=== PATIENT | female | born 1995 | race Caucasian/White ===

== ENCOUNTER 2018-10-20 10:08 | Outpatient (CLI) | payer MEDICAID, OTHER ==
[~2018-10-20] VITALS: Ht 157.5 cm; Wt 60.3 kg
[2018-10-20 10:18] VITALS: Ht 157.5 cm; Wt 60.3 kg
--- NOTE | 2018-10-20 13:00 | TRIAGE ---
OB Triage Datetime Report Generated by CPN: 10/20/2018 13:00 Datetime: 10/20/2018 12:47 Stage of : OB Triage Maternal Assessment Level of Consciousness: Fully Conscious DTR's/Clonus: DTRs 1+ Headache: Denies Breath Sounds, Left: Clear and Equal Breath Sounds, Right: Clear and Equal RUQ Epigastric Pain: Denies Labor Evaluation Frequency: IRR Monitor Mode: External Duration (sec)2399: 50-60 Quality: Mild Pattern: Normal: <= 5 Contractions in 10 Minutes Resting Tone [place]: Relaxed Heart Rate FHR Baseline Rate: 140 Monitor Mode: External US Variability: Moderate 6-25 bpm Accelerations: 15X15 Decelerations: None Category: Category I Pain Assessment Pain Scale: 0 Pain Presence: None/Denies Pain Type: N/A Pain Goal: 3 Vaginal Exam Membrane Status: Intact Datetime: 10/20/2018 12:00 Stage of : OB Triage Maternal Assessment Level of Consciousness: Fully Conscious DTR's/Clonus: DTRs 1+ Headache: Denies Breath Sounds, Left: Clear and Equal Breath Sounds, Right: Clear and Equal RUQ Epigastric Pain: Denies Labor Evaluation Frequency: IRR Monitor Mode: External Duration (sec)2399: 50-60 Quality: Mild Pattern: Normal: <= 5 Contractions in 10 Minutes Resting Tone [place]: Relaxed Heart Rate FHR Baseline Rate: 140 Monitor Mode: External US Variability: Moderate 6-25 bpm Accelerations: 15X15 Decelerations: None Category: Category I Pain Assessment Pain Scale: 0 Pain Presence: None/Denies Pain Type: N/A Pain Goal: 3 Vaginal Exam Membrane Status: Intact Datetime: 10/20/2018 11:00 Stage of : OB Triage Maternal Assessment Level of Consciousness: Fully Conscious DTR's/Clonus: DTRs 1+ Headache: Denies Breath Sounds, Left: Clear and Equal Breath Sounds, Right: Clear and Equal RUQ Epigastric Pain: Denies Labor Evaluation Frequency: OCC Monitor Mode: External Duration (sec)2399: 50-60 Quality: Mild Pattern: Normal: <= 5 Contractions in 10 Minutes Resting Tone [place]: Relaxed Heart Rate FHR Baseline Rate: 140 Monitor Mode: External US Variability: Moderate 6-25 bpm Accelerations: 15X15 Decelerations: None Category: Category I Pain Assessment Pain Scale: 0 Pain Presence: None/Denies Pain Type: N/A Pain Goal: 3 Vaginal Exam Membrane Status: Intact Datetime: 10/20/2018 10:36 Maternal Assessment Level of Consciousness: Fully Conscious DTR's/Clonus: DTRs 1+ Headache: Denies Blurred Vision: No Breath Sounds, Left: Clear and Equal Breath Sounds, Right: Clear and Equal RUQ Epigastric Pain: Denies Facial Edema: None Labor Evaluation Frequency: X2 Monitor Mode: External Duration (sec)2399: 50-60 Quality: Mild Pattern: Normal: <= 5 Contractions in 10 Minutes Resting Tone [place]: Relaxed Heart Rate FHR Baseline Rate: 140 Variability: Moderate 6-25 bpm Accelerations: 15X15 Decelerations: None Category: Category I Pain Assessment Pain Scale: 0 Pain Presence: None/Denies Pain Type: N/A Pain Goal: 3 Vaginal Exam Membrane Status: Intact Datetime: 10/20/2018 10:30 Maternal Assessment Level of Consciousness: Fully Conscious DTR's/Clonus: DTRs 1+ Headache: Denies Blurred Vision: No Breath Sounds, Left: Clear and Equal Breath Sounds, Right: Clear and Equal Nausea/Vomiting: Denies RUQ Epigastric Pain: Denies Facial Edema: None Labor Evaluation Frequency: X1 Monitor Mode: External Duration (sec)2399: 50 Quality: Mild Pattern: Normal: <= 5 Contractions in 10 Minutes Resting Tone [place]: Relaxed Heart Rate FHR Baseline Rate: 140 Monitor Mode: External US Variability: Moderate 6-25 bpm Accelerations: 15X15 Decelerations: None Category: Category I Pain Assessment Pain Scale: 0 Pain Presence: None/Denies Pain Type: N/A Pain Goal: 0 Vaginal Exam Membrane Status: Intact Datetime: 10/20/2018 10:11 EGA: 38.4 Datetime: 10/20/2018 10:10 Stage of : OB Triage Datetime: 10/20/2018 10:05 Assessment Type: Triage Maternal Assessment Level of Consciousness: Fully Conscious DTR's/Clonus: DTRs 2+; No Clonus Headache: Denies Blurred Vision: No Respiratory Effort: Unlabored; Regular Rhythm; Equal Expansion Breath Sounds, Left: Clear and Equal Breath Sounds, Right: Clear and Equal Nausea/Vomiting: Denies RUQ Epigastric Pain: Denies Lower Extremities Edema: None Degree: None Upper Extremities Edema: None Degree: None Facial Edema: None Fall Risk Assessment History of Falling: (0) No Secondary Diagnosis: (0) No Ambulatory Aid: (0) Bedrest/Nurse Assist IV Therapy: (0) No Gait: (0) Normal/Bedrest/Immobile Mental Status: (0) Oriented to Own Ability Fall Score: 0 Fall Risk Score Definition: No Risk: No action required Datetime: 10/20/2018 09:59 Time of Arrival: 10/20/2018 09:59 Arrived By: Ambulatory Arrived From: Home Chief Complaint: PT CAME IN FROM HOME C/O SPOTTING BROWN DISCHARGE LAST NIGHT AND DFM. DENIE S ANY OTHER COMPLICATION Movement: Present Contractions: Denies/Absent Rupture of Membranes: Denies Vaginal Discharge: Denies Recent Sexual Intercouse: Denies Abdominal Trauma: Not Applicable Additional Patient Complaints: NONE Time Provider Notified: 10/20/2018 10:20 Provider Notified: TAWANDA Initial Plan: MONITOR AND VE
--- NOTE | 2018-10-20 17:01 | PN ---
Triage Information Date/Time October 12, 2018 Reason for visit: Weeks of Gestation 38 weeks and 4 days /Para 1 para 0 Diabetes: none Hypertention: none Additional information 23-year-old with IUP at 38 weeks and 4 days presented with complaint of spotting today as well as decreased movement. She denies leaking of fluid or contractions. Denies any competition during course. Objective Heart Rate: 130's Heart Rate Comments Category 1 Exam General appearance: Alert and oriented x4 does not appear to be in any acute distress Abdomen: Soft, gravid, fundal height consider gestational age NST: Category 1 Cervical exam: /-2 Rh+ Estimated weight: 18 percentile ALEXANDER: 10.4 BPP: 03/30 Results/Medications Result Diagram: 10/20/18 1110 10/20/18 1110 Results 24 hrs Laboratory Tests Test 10/20/18 11:10 White Blood Count 7.4 Red Blood Count 3.82 L Hemoglobin 8.5 L Hematocrit 28.7 L Mean Corpuscular Volume 75.1 L Mean Corpuscular Hemoglobin 22.3 L Mean Corpuscular Hemoglobin Concent 29.6 L Red Cell Distribution Width 17.8 H Platelet Count 165 Mean Platelet Volume 10.5 H Immature Granulocytes % 0.800 H Neutrophils % 70.0 Lymphocytes % 21.7 Monocytes % 6.1 Eosinophils % 0.9 Basophils % 0.5 Nucleated Red Blood Cells % 0.0 Immature Granulocytes # 0.060 H Neutrophils # 5.2 Lymphocytes # 1.6 Monocytes # 0.5 Eosinophils # 0.1 Basophils # 0.0 Nucleated Red Blood Cells # 0.0 Activated Partial Thromboplast Time 24.6 Sodium Level 138 Potassium Level 4.2 Chloride Level 110 Carbon Dioxide Level 21 Anion Gap 7 Blood Urea Nitrogen 12 Creatinine 0.58 Est Glomerular Filtrat Rate mL/min > 60 Glucose Level 73 Calcium Level 8.9 Total Bilirubin 0.3 Direct Bilirubin 0.00 Indirect Bilirubin 0.3 Aspartate Amino Transf (AST/SGOT) 25 Alanine Aminotransferase (ALT/SGPT) 7 L Alkaline Phosphatase 110 Total Protein 6.6 Albumin 3.5 Globulin 3.10 Albumin/Globulin Ratio 1.12 Imaging Results PROCEDURE: US OB. CLINICAL INDICATION: Size and dates , vaginal spotting TECHNIQUE: Multiple sonographic images of the pelvis and gravid uterus were obtained. The images were reviewed on a PACS workstation. COMPARISON: US PELVIS 10/20/2018 FINDINGS: Gestation: Single live intrauterine gestation. Cardiac activity: 156 beats per minute. Presentation: Vertex. Placenta: Location: Posterior Appearance: No previa or abruption. Amniotic Fluid: ALEXANDER = 10.4 cm Measurements: BPD = 8.4 cm, 34 weeks and 0 days HC = 30.7 cm, 34 weeks and 1 day AC = 34.5 cm, 38 weeks and 3 days FL = 6.8 cm, 34 weeks and 5 days Gestational Age: AUA estimated gestational age: 35 weeks 2 days LMP estimated gestational age: 38 weeks 4 days AUA estimated date of delivery: 11/22/18 The EFW = 2961 g, 18%ile based on LMP age. RPTAT: AA IMPRESSION: Single live intrauterine gestation of 35 weeks 2 days by ultrasound criteria. .Ramy Carl MD, MD Date Time Electronically viewed and signed by .Ramy Carl, Disposition: Discharge Assessment/Plan IUP at 38 weeks and 4 days Spotting Rh+ Decreased movement testing reassuring DC home strict labor precaution kick count follow-up with primary OB office within 48 hours after discharge from the hospital discussed with patient ASHLI JIMENEZ MD Oct 20, 2018 17:01
--- NOTE | 2018-10-23 17:59 | DS ---
DATE OF ADMISSION: 10/20/2018 DATE OF DISCHARGE: 10/20/2018 HISTORY OF PRESENT ILLNESS: This is a 23-year-old lady, 1 and EDC 10/30/2018 that makes her 38 and 3/7 weeks, admitted to rule out labor. She started to have contractions about a few hours parris or to admission and got worse up to the time of admission. PAST PERSONAL HISTORY: No history of diabetes, TB, asthma. ALLERGIES: NO ALLERGIES. SOCIAL HISTORY: The patient does not smoke. She does not drink. MEDICATIONS: She does not take any drugs except her; 1. Iron. 2. Vitamins. GYNECOLOGIC HISTORY: She had menarche at the age of 12, every 28 days interval, 3 to 4 days duration and moderate in amount. FAMILY HISTORY: Mother has a history of depression, sister had history of thyroid problem. REVIEW OF SYSTEMS: CARDIOVASCULAR: No chest pains. RESPIRATORY: No cough. GASTROINTESTINAL: No diarrhea, no vomiting. GENITOURINARY: No dysuria. PHYSICAL EXAMINATION: GENERAL: Reveals a conscious, coherent lady and in no acute distress. VITAL SIGNS: Blood pressure 120/80, pulse rate 80 per minute, respirations 16 per minute. BREASTS, HEART AND LUNGS: Within normal limits. ABDOMEN: Soft. No organomegaly. Fundic height is 38 cm. heart tones 140 per minute. PELVIC: On admission revealed the cervix to be closed, station -2 in cephalic presentation with the bag of water intact. EXTREMITIES: No pedal edema. ADMITTING DIAGNOSIS: 1. A 38 and 3/7 weeks' intrauterine . 2. Rule out labor. The patient was observed in the hospital and she was given IV hydration and then had an ultrasound do ms and the ultrasound was normal. A few hours after admission, the patient felt better. Contraction almost disappeared, so she was discharged home in good and stable condition on general diet and acti vity was restricted. She was counseled. She was instructed. She was told to keep her appointment i n the clinic. FINAL DIAGNOSES: 1. A 38 and 3/7 weeks' intrauterine . 2. False labor. Dictated By: BONNY EATON/NTS Conf#: [id number] DID#: [id number]
== END 2018-10-20 13:03 | disposition home or self-care (01) ==
LOC: OBT 10:08 → L-D 10:08 → OBT 13:03
PROVIDERS: ATTEND Obstetrics & Gynecology
DX: O47.1 False labor at or after 37 completed weeks of gestation (principal); O36.8130 Decreased fetal movements, third trimester, not applicable or unspecified; Z3A.38 38 weeks gestation of pregnancy; O26.893 Other specified pregnancy related conditions, third trimester; N89.8 Other specified noninflammatory disorders of vagina
CPT/HCPCS: 76815; 76818; 80053; 85025; 85730; Z7500; G0463

== ENCOUNTER 2018-10-21 17:49 | Inpatient (IN) | payer OTHER ==
[~2018-10-21] VITALS: Ht 157.5 cm; Wt 59.9 kg
[2018-10-21 18:02] VITALS: Ht 157.5 cm; Wt 59.9 kg
[2018-10-21 18:03] VITALS: BP 108/68; PULSE 98; RESP 18
[2018-10-21] MEDS ORDERED: LACTATED RINGER'S 1,000 ML IV PRN (21:02)
--- NOTE | 2018-10-21 21:29 | TRIAGE ---
OB Triage Datetime Report Generated by CPN: 10/21/2018 21:28 Datetime: 10/21/2018 20:40 Stage of : OB Triage Frequency: 2-5 Monitor Mode: External Duration (sec)2399: 40-100 Quality: Moderate Pattern: Normal: <= 5 Contractions in 10 Minutes Resting Tone [place]: Relaxed FHR Baseline Rate: 130 Monitor Mode: External US FHR Baseline Changes: No Baseline Change Variability: Moderate 6-25 bpm Accelerations: 15X15 Decelerations: None Category: Category I Pain Scale: 8 Pain Presence: Intermittent Pain Type: Contraction Pain Location: Abdomen Dilatation (cms): 2.5 Effacement (%): 90 Station: -2 Exam By: Dr Degroot Membrane Status: Bulging Vaginal Bleeding: None Cervix, Consistency: Soft Cervix, Position: Midposition Presentation 'A': Cephalic Datetime: 10/21/2018 19:00 Frequency: irreg Monitor Mode: External Duration (sec)2399: 60-80 Quality: Moderate Pattern: Normal: <= 5 Contractions in 10 Minutes Resting Tone [place]: Relaxed FHR Baseline Rate: 135 Monitor Mode: External US Variability: Moderate 6-25 bpm Accelerations: 15X15 Decelerations: None Category: Category I Datetime: 10/21/2018 18:30 Frequency: 4-6 Monitor Mode: External Duration (sec)2399: 80-90 Quality: Moderate Pattern: Normal: <= 5 Contractions in 10 Minutes Resting Tone [place]: Relaxed FHR Baseline Rate: 140 Monitor Mode: External US Variability: Moderate 6-25 bpm Accelerations: 15X15 Decelerations: None Category: Category I Pain Scale: 8 Pain Presence: Intermittent Pain Type: Contraction Pain Location: Abdomen Pain Relief Measures: Comfort Measures Datetime: 10/21/2018 18:08 Dilatation (cms): 1.5 Effacement (%): 70 Station: -2 Exam By: radha Datetime: 10/21/2018 18:06 Assessment Type: Triage Level of Consciousness: Fully Conscious Headache: Denies Blurred Vision: No Respiratory Effort: Unlabored; Regular Rhythm; Equal Expansion Breath Sounds, Left: Clear and Equal Breath Sounds, Right: Clear and Equal Nausea/Vomiting: Denies RUQ Epigastric Pain: Denies Lower Extremities Edema: None Degree: None Upper Extremities Edema: None Degree: None Facial Edema: None History of Falling: (0) No Secondary Diagnosis: (0) No Ambulatory Aid: (0) Bedrest/Nurse Assist IV Therapy: (0) No Gait: (0) Normal/Bedrest/Immobile Mental Status: (0) Oriented to Own Ability Fall Score: 0 Fall Risk Score Definition: No Risk: No action required Datetime: 10/21/2018 18:05 Time of Arrival: 10/21/2018 17:45 EGA: 38.5 Arrived By: Ambulatory Arrived From: Home Movement: Present Contractions: Regular Time Contractions Began: 10/20/2018 20:00 Contractions: 4-5 Rupture of Membranes: Denies Vaginal Bleeding: None Vaginal Discharge: Denies Recent Sexual Intercouse: Denies Abdominal Trauma: Not Applicable Patient Complaints: Contractions Time Provider Notified: 10/21/2018 18:20 Provider Notified: Felicita Initial Plan: toco, efm, NST, BPP
[2018-10-21] MEDS ORDERED: LIDOCAINE 1% (MPF) 30 ML INJ INJ PRN (21:30)
[2018-10-21] MEDS ORDERED: IBUPROFEN 600 MG TAB PO PRN (21:30)
[2018-10-21] MEDS ORDERED: METHYLERGONOVINE 0.2 MG INJ IM PRN (21:30)
[2018-10-21] MEDS ORDERED: OXYTOCIN 30 UNITS/LR 500 ML IV PRN (21:30)
[2018-10-21] MEDS ORDERED: MINERAL OIL LIGHT 10 ML VIAL TOP ONE (21:30)
[2018-10-21] MEDS ORDERED: CARBOPROST 250 MCG INJ IM PRN (21:30)
[2018-10-21] MEDS ORDERED: MISOPROSTOL 200 MCG TAB PR PRN (21:30)
[2018-10-21] MEDS ORDERED: OXYTOCIN 30 UNITS/LR 500 ML IV SCH ×2 (21:30)
[2018-10-21] MEDS ORDERED: BUTORPHANOL 1 MG INJ IV PRN (21:30)
[2018-10-21] MEDS: LACTATED RINGER'S 1,000 ML IV SCH (21:50)
[2018-10-21] MEDS: BUTORPHANOL 2 MG INJ IV PRN (21:54)
--- NOTE | 2018-10-21 22:49 | HP ---
Date/Time of Note Date/Time of Note DATE: 10/21/18 TIME: 22:45 OB - History Hx of Present Free Text/Dictation 23-year-old 1 with single intrauterine at 38 weeks and 5 days with a LAURY of 10/30/2018 complaining of uterine contractions. She states good movement. She denies nausea, vomiting, shortness of breath, chest pain, headache, visual changes, vaginal bleeding or LOF. Chief Complaint: Uterine contractions Estimated Due Date: Oct 30, 2018 : 1 Care: Good Care Ultrasounds: Normal mid trimester US Obstetrical Complications: None Medical Complications: None Past Family/Social History * Past Medical, Surgical, Family and Obstetric Histories reviewed from chart. Blood Type: O+ Rubella: immune RPR/VDRL: Negative GBS Status: Negative HBsAG: Negative OB Admission Exam Vital Signs Vital Signs Vital Signs Date Temp Pulse Resp B/P (MAP) Pulse Ox O2 O2 Flow FiO2 Time Delivery Rate 10/21/18 98.0 98 18 108/68 Room Air 18:03 (81) Physical Exam HEENT: WNL Heart: Rhythm Normal Lungs: Clear Abdomen: WNL Extremities: Normal Cervical Dilatation: other (23 cm) Effacement: Other (90%) Station: -3 Membranes: Intact Heart Rate: 130's Accelerations: Accelerations Present Decelerations: No Decelerations Varibility: Moderate Contractions on Admission: < 5 Minutes Apart Intensity: Moderate OB Assessment/Plan Other plan: 23-year-old 1 with single intrauterine at 38 weeks and 5 days in labor - FHR: No sign of metabolic acidosis- Category I - Continuous EFM, toco - CBC, blood type and screen - Analgesia options with R/B/A discussed in detail with patient - Epidural per patient request - Please see the orders - O+/Rubella: Immune - GBS: Negative Admission, procedures, expectations, risks and possible complications have been discussed in detail with the patient. Risk of vaginal delivery including but not limited to bleeding, infection, cervical laceration, placental retention, injury to fetus, blood transfusion, blood transfusion related infection, risk of anesthesia, adhesion, cervical laceration, episiotomy/laceration, possible delivery with risk of bleeding, infection, injury to other organs (bowel, bladder, ureter, vessels, nerves), injury to fetus, blood transfusion, blood transfusion related infection, risk of anesthesia, scar and hernia fo rmation, needs for future , removal of uterus or any other indicated surgery discussed with the patient. She expressed understanding and repeats the risks. All of her questions were answered. She signed the informed consent. PHYSICIAN'S VERIFICATION OF INFORMED CONSENT The patient and her mother counseled regarding the procedure, its indications, risks, potential complications and alternatives and any questions were answered. Consent was obtained. PLANNED PROCEDURE/TREATMENT: Vaginal delivery, episiotomy, repair of laceration possible delivery IZABEL VELOZ Oct 21, 2018 22:49
[2018-10-22] MEDS: BUTORPHANOL 2 MG INJ IV PRN (00:32)
--- NOTE | 2018-10-22 01:14 | PREAC ---
Date/Time of Note Date/Time of Note DATE: 10/22/18 TIME: : Anesthesia Eval and Record Evaluation Time Pre-Procedure Interview DATE: 10/22/18 TIME: : Age 23 Sex female NPO: 8 hrs Preoperative diagnosis iup at 38 weeks Planned procedure labor epidural Past Medical History Past Medical History: Includes Musculoskeletal: Other (scoliosis) Surgery & Anesthesia Issues No known issue Meds Anticoagulation: No Beta Ambika within 24 hr: No Reason Beta Ambika not given: Pt. not on B-Ambika No Active Prescriptions or Reported Meds Current Medications Lactated Ringer's 1,000 ml @ 125 mls/hr Q8H IV Last administered on 10/21/18at 21:50; Admin Dose 125 MLS/HR; Start 10/21/18 at 21:02 Butorphanol Tartrate (Stadol) 1 mg Q2H PRN IV .PAIN; Start 10/21/18 at 21:30 Butorphanol Tartrate (Stadol) 2 mg Q2H PRN IV .PAIN Last administered on 10/22/18at 00:32; Admin Dose 2 MG; Start 10/21/18 at 21:30 Lidocaine (Xylocaine 1% (Mpf)) 30 ml ONCE PRN INJ .EPISIOTOMY; Start 10/21/18 at 21:30 Oxytocin/Lactated Ringer's 500 ml @ 500 mls/hr ONCE POST IV ; Start 10/21/18 at 21:30 Oxytocin/Lactated Ringer's 500 ml @ 125 mls/hr POST IV ; Start 10/21/18 at 21:30 Ibuprofen (Motrin) 600 mg ONCE PRN PO .PAIN 1-5; Start 10/21/18 at 21:30 Lactated Ringer's 1,000 ml @ 2,000 mls/hr Q30M PRN IV .ANESTHESIA Last administered on 10/22/18at 00:33; Admin Dose 2,000 MLS/HR; Start 10/21/18 at 21:02 Oxytocin/Lactated Ringer's 500 ml @ 0 mls/hr ONCE PRN IV .VAGINAL BLEEDING; Start 10/21/18 at 21:30 Methylergonovine Maleate (Methergine) 0.2 mg ONCE PRN IM .VAGINAL BLEEDING; Start 10/21/18 at 21:30 Carboprost Tromethamine (Hemabate) 250 mcg ONCE PRN IM .VAGINAL BLEEDING; Start 10/21/18 at 21:30 Misoprostol (Cytotec) 1,000 mcg ONCE PRN ME .VAGINAL BLEEDING; Start 10/21/18 at 21:30 Meds reviewed: Yes Allergies Coded Allergies: No Known Allergy (Unverified , 10/21/18) Allergies Reviewed: Yes Labs/Studies Labs Reviewed: Reviewed by anesthesiologist Result Diagram: 10/21/18 2145 Laboratory Tests 10/21/18 21:45 Blood Bank Test 10/21/18 21:45 Antibody Screen NEGATIVE Blood Type O POSITIVE Rh Immune Globulin Candidate NO test: Positive Pre-procedure Exam Last vitals Vital Signs Date Temp Pulse Resp B/P (MAP) Pulse Ox O2 O2 Flow FiO2 Time Delivery Rate 10/21/18 98.0 98 18 108/68 Room Air 18:03 (81) Airway: Adequate mouth opening, Adequate thyromental dist Mallampati: Mallampati II Teeth: Normal Lung: Normal Heart: Normal ASA Physical Status ASA physical status: 2 Emergency: None Planned Anesthetic Neuraxial: Epidural Planned Pain Management Parenteral pain med Pre-operative Attestations Prior to commencing anesthesia and surgery, the patient was re-evaluated, there was verification of: *The patient's identity *The results of appropriate recent lab work and preoperative vital signs *The above evaluation not changing prior to induction *Anesthetic plan, risk benefits, alternative and complications discussed with patient/family; questions answered; patient/family understands, accepts and wishes to proceed. RUTH ANN SANDRA Oct 22, 2018 01:14
[2018-10-22] MEDS ORDERED: FENTAnyl 2MCG/ML-ROPIV 0.2% 100 ML ONE (01:16)
[2018-10-22] MEDS ORDERED: NALOXONE (0.4 MG/ML) INJ IV PRN (01:30)
[2018-10-22] MEDS ORDERED: ONDANSETRON 4 MG INJ IV PRN ×2 (01:30→13:30)
[2018-10-22] MEDS ORDERED: DIPHENHYDRAMINE 50 MG INJ IV PRN (01:30)
[2018-10-22] MEDS: FENTAnyl 2MCG/ML-ROPIV 0.2% 100 ML BAG EPI SCH ×2 (01:47→07:24)
[2018-10-22] MEDS: LACTATED RINGER'S 1,000 ML IV SCH (06:25)
[2018-10-22] MEDS ORDERED: OXYTOCIN 30 UNITS/LR 500 ML IV SCH ×2 (08:30→13:13)
[2018-10-22] MEDS ORDERED: MINERAL OIL LIGHT 10 ML VIAL TOP SCH (09:30)
--- NOTE | 2018-10-22 09:37 | PN ---
Date/Time of Note Date/Time of Note DATE: 10/22/18 TIME: 09:33 OB Subjective Subjective Subjective Status post epidural anesthesia OB Objective Objective Objective NST reactive [place] regular contractions Cervix 8 cm/100%/0 station OB Assessment/Plan Reason for admission: active labor Other Assessment: 23-year-old 1 with single intrauterine at 38 weeks and 6 days with a LAURY of 10/30/2018 in active labor Other plan: Artificial rupture membranes- clear fluid obtained Anticipate normal delivery DAVONTE MAN MD Oct 22, 2018 09:37
--- NOTE | 2018-10-22 13:17 | LDN ---
Date/Time of Note Date/Time of Note DATE: 10/22/18 TIME: 13:14 Delivery Summary Term gestation Placenta Delivered: Spontaneously Meconium: none Episiotomy: No Anesthesia type: Epidural Estimated blood loss: 200 Sponge & Needle done & correct: Yes All needle counts correct: Yes Any foreign bodies felt in the: No Delivery Information Sex Sex: female Apgars 1 Minute: 9 5 Minute: 9 Suctioning Nose & mouth suctioned at [place]: Yes Umbilical Cord Umbilical cord with: 3 Vessels Cord presentations: nuchal cord (X1 reduced manually) Cord Blood was obtained: Yes Mother & Baby Disposition Disposition Baby's weight 5 pounds 14 ounces/ 2665 gr Patient received Methergine x1 dose Cytotec 1000 mcg per rectum Mom & Baby to Maternity; Good: Yes Baby to NICU: No Copies To: CC: BONNY NEFF MD ; DAVONTE MAN MD Oct 22, 2018 13:17
[2018-10-22] MEDS ORDERED: CARBOPROST 250 MCG INJ IM PRN (13:30)
[2018-10-22] MEDS ORDERED: DIBUCAINE 1% 30 GM OINT TOP PRN (13:30)
[2018-10-22] MEDS ORDERED: IBUPROFEN 600 MG TAB PO PRN (13:30)
[2018-10-22] MEDS ORDERED: OXYTOCIN 30 UNITS/LR 500 ML IV PRN (13:30)
[2018-10-22] MEDS ORDERED: LANOLIN HPA 1 PKT TOP PRN (13:30)
[2018-10-22] MEDS ORDERED: MISOPROSTOL 200 MCG TAB PR PRN (13:30)
[2018-10-22] MEDS ORDERED: MAGNESIUM HYDROXIDE 30ML CUP PO PRN (13:30)
[2018-10-22] MEDS ORDERED: ACETAMINOPHEN 325 MG TAB PO PRN ×2 (13:30)
[2018-10-22] MEDS ORDERED: METHYLERGONOVINE 0.2 MG INJ IM PRN (13:30)
[2018-10-22] MEDS ORDERED: CEFAZOLIN 1 GM/50 ML (PMX) 50 ML IVPB SCH ×3 (14:00→20:00)
[2018-10-22] MEDS ORDERED: CEFAZOLIN 2 GM/50 ML (PMX) 50 ML IVPB ONE (14:00)
[2018-10-22 15:10] VITALS: BP 117/58; PULSE 86; RESP 18
[2018-10-22] MEDS: WITCH HAZEL/GLYCERIN PAD PR PRN (16:10)
[2018-10-22] MEDS: BENZOCAINE 20% 56 ML SPRAY TOP PRN (16:10)
[2018-10-22] MEDS: LACTATED RINGER'S 1,000 ML IV* SCH ×2 (18:18→21:13)
[2018-10-22 20:00] VITALS: BP 100/59; PULSE 94; RESP 18
[2018-10-23 00:30] VITALS: BP 115/75; PULSE 95; RESP 18
[2018-10-23 04:39] VITALS: BP 113/68; PULSE 73; RESP 18
[2018-10-23] MEDS: LACTATED RINGER'S 1,000 ML IV* SCH (06:34)
[2018-10-23 08:25] VITALS: BP 95/60; PULSE 77; RESP 18
--- NOTE | 2018-10-23 08:58 | PAC ---
Date/Time of Note Date/Time of Note DATE: 10/23/18 TIME: 08:58 Post-Anesthesia Notes Post-Anesthesia Note Last documented vital signs Vital Signs Date Temp Pulse Resp B/P (MAP) Pulse Ox O2 O2 Flow FiO2 Time Delivery Rate 10/23/18 98.7 73 18 113/68 Room Air 08:39 (83) Activity: WNL Respiratory function: WNL Cardiovascular function: WNL Mental status: Baseline Pain reasonably controlled: Yes Hydration appropriate: Yes Nausea/Vomiting absent: Yes RUTH ANN SANDRA Oct 23, 2018 08:58
[2018-10-23] MEDS: SENNA/DOCUSATE NA (8.6MG/50MG) TAB PO PRN ×2 (09:37→21:57)
[2018-10-23 16:39] VITALS: BP 109/57; PULSE 75; RESP 18
[2018-10-23 20:26] VITALS: BP 105/62; PULSE 104; RESP 18
[2018-10-23] MEDS: IBUPROFEN LIQUID (PED) 20 MG/ML CUP PO PRN (21:58)
[2018-10-24 03:28] VITALS: BP 104/78; PULSE 76; RESP 18
[2018-10-24] MEDS: IBUPROFEN LIQUID (PED) 20 MG/ML CUP PO PRN ×2 (06:08→13:08)
[2018-10-24 08:30] VITALS: BP 103/68; PULSE 79; RESP 18
[2018-10-24] MEDS ORDERED: BISACODYL 10 MG SUPP PR ONE (09:30)
[2018-10-24] MEDS ORDERED: MAGNESIUM HYDROXIDE 30ML CUP PO ONE (09:30)
[2018-10-24] MEDS: WITCH HAZEL/GLYCERIN PAD PR PRN (12:34)
[2018-10-24] MEDS: BENZOCAINE 20% 56 ML SPRAY TOP PRN (12:34)
--- NOTE | 2018-10-25 11:49 | PN ---
Date/Time of Note Date/Time of Note DATE: 10/23/18 TIME: 11:47 Assessment/Plan VTE Prophylaxis Risk score (from Ns)>0 risk: 1 SCD applied (from Ns): No SCD contraindicated: low risk/ambulating Pharmacological prophylaxis: NA/contraindicated Pharm contraindication: low risk/ambulating Lines/Catheters IV [facility] Type [facility]from [facility] Peripheral IV Assessment/Plan Assessment/Plan POST DAY 1 CHRONIC IRON DEFICIENCY ANEMIA HOME TOMORROW RETURN TO CLINIC IN 2 WEEKS CONTINUE WITH VITAMINS OD AND FERROUS SULFATE PO TID DIET ADVISED COUNSELED INSTRUCTED CALL OFFICE IF THERE IS ANY PROBLEMS OR CONCERN Result Diagram: 10/23/18 0656 Subjective 24 Hr Interval Summary Free Text/Dictation FEELS GOOD, GOOD URINE OUTPUT, GOOD BOWEL MOVEMENT Exam/Review of Systems Exam Vitals Vital Signs Date Temp Pulse Resp B/P (MAP) Pulse Ox O2 O2 Flow FiO2 Time Delivery Rate 10/24/18 98.3 79 18 103/68 High Flow 08:30 (80) Exam VITAL SIGNS STABLE: YES AFEBRILE: YES BREAST NOT ENGORGED, NON-TENDER, NO APPRECIABLE MASS: YES LUNGS CLEAR, NO RALES, WHEEZES, RHONCHI: YES SINUS RHYTHM WITHOUT MURMUR: YES ABDOMEN: NON-TENDER FUNDUS: BELOW UMBILICUS BOWEL SOUNDS: PRESENT UTERUS: FIRM INTACT PERINEUM: YES LOCHIA: LIGHT DEEP TENDON REFLEXES: 0 EXTREMITIES: NO CALF TENDERNESS EDEMA SCALE: NONE BONNY NEFF MD Oct 25, 2018 11:49
== END 2018-10-24 14:25 | disposition home or self-care (01) | DRG 807 ==
LOC: OBT 17:49 → L-D 17:50 → OBT 20:50 → L-D 20:50 → PP1 10-22 14:43
PROVIDERS: ADMIT Obstetrics & Gynecology; ATTEND Obstetrics & Gynecology
PROC: 10E0XZZ Delivery of Products of Conception, External Approach (ICD-10-PCS; principal; 2018-10-22)
PROC: 0HQ9XZZ Repair Perineum Skin, External Approach (ICD-10-PCS; 2018-10-22)
PROC: 10907ZC Drainage of Amniotic Fluid, Therapeutic from Products of Conception, Via Natural or Artificial Opening (ICD-10-PCS; 2018-10-22)
DX: O69.81X0 Labor and delivery complicated by cord around neck, without compression, not applicable or unspecified (principal); Z37.0 Single live birth; O70.9 Perineal laceration during delivery, unspecified; O99.02 Anemia complicating childbirth; D50.9 Iron deficiency anemia, unspecified; Z3A.38 38 weeks gestation of pregnancy
CPT/HCPCS: 62319; 76818; 85025; 85610; 85730; 86592; 86850; 86900; 86901; 87340; G0463; J0595; J0690; J2405; J2590; J3010; J7120